=== PATIENT | female | born 1995 | race Caucasian/White ===

== ENCOUNTER 2017-11-07 18:47 | Outpatient (CLI) | payer MEDICAID | END 2017-11-07 23:25 | disposition home or self-care (01) | LOC: OBT 23:25 → L-D 18:48 | DX: O62.9 Abnormality of forces of labor, unspecified (principal); Z3A.40 40 weeks gestation of pregnancy | CPT/HCPCS: 76815; 76818 ==

== ENCOUNTER 2017-11-08 12:30 | Inpatient (IN) | payer MEDICAID ==
[2017-11-08] MEDS ORDERED: MISOPROSTOL 200 MCG TAB PR ×2 (13:00→16:30)
[2017-11-08] MEDS ORDERED: BUTORPHANOL 1 MG INJ IV (13:00)
[2017-11-08] MEDS ORDERED: LIDOCAINE 1% (MPF) 30 ML INJ INJ (13:00)
[2017-11-08] MEDS ORDERED: METHYLERGONOVINE 0.2 MG INJ IM ×2 (13:00→16:30)
[2017-11-08] MEDS ORDERED: CARBOPROST 250 MCG INJ IM ×2 (13:00→16:30)
[2017-11-08] MEDS ORDERED: OXYTOCIN 30 UNITS/LR 500 ML IV ×2 (13:00→16:30)
[2017-11-08 13:02] LABS: ADD MAN DIFF? NO
[2017-11-08] MEDS: LACTATED RINGER'S 1,000 ML IV* ×2 (13:05→19:00)
[2017-11-08 13:25] LABS: INR 0.82; PROTIME 11.4 Sec (11.9-14.9); PT RATIO 0.9
[2017-11-08 13:28] LABS: WHITE BLOOD COUNT 9.4 10^3/ul (4.8-10.8)
[2017-11-08 13:28] LABS: BASOPHILS % 0.2 % (0.0-2.0); EOSINOPHILS % 0.2 % (0.0-7.0); HEMATOCRIT 35.6 % (37.0-47.0); HEMOGLOBIN 11.5 g/dl (12.0-16.0); LYMPHOCYTES # 1.3 10^3/ul (0.8-2.9); MEAN CORPUSCULAR HEMOGLOBIN 29.3 pg (29.0-33.0); MEAN CORPUSCULAR HGB CONC 32.3 g/dl (32.0-37.0); MEAN CORPUSCULAR VOLUME 90.8 fl (82.0-101.0); MEAN PLATELET VOLUME 11.3 fl (7.4-10.4); MONOCYTE # 0.5 10^3/ul (0.3-0.9); MONOCYTES % 5.2 % (0.0-11.0); NEUTROPHIL # 7.6 10^3/ul (1.6-7.5); NEUTROPHILS % 80.1 % (39.0-77.0); PLATELET COUNT 158 10^3/UL (140-415); RED BLOOD COUNT 3.92 10^6/ul (4.20-5.40); RED CELL DISTRIBUTION WIDTH 12.5 % (11.5-14.5)
[2017-11-08] MEDS: OXYTOCIN 30 UNITS/LR 500 ML IV ×3 (14:52→17:53)
[2017-11-08] MEDS: IBUPROFEN 600 MG TAB PO (14:53)
[2017-11-08] MEDS ORDERED: HYDROCODONE/APAP (5/325) TAB PO (16:30)
[2017-11-08] MEDS ORDERED: SENNA/DOCUSATE NA (8.6MG/50MG) TAB PO (16:30)
[2017-11-08] MEDS ORDERED: MAGNESIUM HYDROXIDE 30ML CUP PO (16:30)
[2017-11-08] MEDS ORDERED: ACETAMINOPHEN 325 MG TAB PO (16:30)
[2017-11-08] MEDS ORDERED: ZOLPIDEM 5 MG TAB PO (16:30)
[2017-11-08] MEDS ORDERED: DIPHENHYDRAMINE 25 MG CAP PO (16:30)
[2017-11-08 16:46] LABS: RAPID PLASMA REAGIN NONREACTIVE (NR)
[2017-11-08] MEDS: WITCH HAZEL/GLYCERIN PAD PR (17:50)
[2017-11-08] MEDS: IBUPROFEN 800 MG TAB PO ×2 (17:50→23:36)
[2017-11-08] MEDS: BENZOCAINE 20% 56 ML SPRAY TOP (17:50)
[2017-11-08] MEDS: LANOLIN 7 GM TUBE TOP (17:50)
[2017-11-09] MEDS: LACTATED RINGER'S 1,000 ML IV* ×3 (00:26→16:26)
[2017-11-09] MEDS: IBUPROFEN 800 MG TAB PO ×4 (05:57→23:56)
[2017-11-09 08:29] LABS: ADD MAN DIFF? NO
[2017-11-09 08:30] LABS: BASOPHILS % 0.2 % (0.0-2.0); EOSINOPHILS # 0.1 10^3/ul (0.0-0.5); EOSINOPHILS % 0.9 % (0.0-7.0); HEMATOCRIT 32.2 % (37.0-47.0); HEMOGLOBIN 10.5 g/dl (12.0-16.0); LYMPHOCYTES # 1.2 10^3/ul (0.8-2.9); LYMPHOCYTES % 13.7 % (15.0-51.0); MEAN CORPUSCULAR HEMOGLOBIN 29.8 pg (29.0-33.0); MEAN CORPUSCULAR HGB CONC 32.6 g/dl (32.0-37.0); MEAN CORPUSCULAR VOLUME 91.5 fl (82.0-101.0); MEAN PLATELET VOLUME 11.6 fl (7.4-10.4); MONOCYTE # 0.5 10^3/ul (0.3-0.9); MONOCYTES % 6.4 % (0.0-11.0); NEUTROPHIL # 6.6 10^3/ul (1.6-7.5); NEUTROPHILS % 78.1 % (39.0-77.0); PLATELET COUNT 154 10^3/UL (140-415); RED BLOOD COUNT 3.52 10^6/ul (4.20-5.40); RED CELL DISTRIBUTION WIDTH 12.4 % (11.5-14.5)
[2017-11-09 08:30] LABS: WHITE BLOOD COUNT 8.5 10^3/ul (4.8-10.8)
[2017-11-10] MEDS: LACTATED RINGER'S 1,000 ML IV* ×2 (00:26→08:26)
[2017-11-10] MEDS: IBUPROFEN 800 MG TAB PO (05:36)
[2017-11-10] MEDS: VARICELLA VACCINE LIVE/PF 1,350 UNIT/0.5 ML ML SC* (09:06)
[2017-11-10] MEDS: MEASLES,MUMPS,RUBELLA VACCINE INJ SC* (09:06)
[2017-11-10] MEDS: DIPHTH/TET/ACEL PERTUSS (ADULT) 0.5 ML VIAL IM* (09:06)
== END 2017-11-10 11:45 | disposition home or self-care (01) | DRG 807 ==
LOC: L-D 12:30 → PP1 16:00
PROVIDERS: Obstetrics & Gynecology
PROC: 10E0XZZ Delivery of Products of Conception, External Approach (ICD-10-PCS; principal; 2017-11-08)
DX: O80 Encounter for full-term uncomplicated delivery (principal); Z37.0 Single live birth; Z3A.00 Weeks of gestation of pregnancy not specified
CPT/HCPCS: 85025; 85610; 85730; 86592; 86850; 86900; 86901; 90715; 90716